=== PATIENT | male | born 1950 | race Caucasian/White ===

== ENCOUNTER 2017-03-16 03:53 | Emergency (ER) | payer MEDICARE, OTHER ==
[~2017-03-16] VITALS: Ht 177.8 cm; Wt 108.6 kg
[2017-03-16 03:55] VITALS: Ht 177.8 cm; Wt 108.6 kg
--- NOTE | 2017-03-16 04:00 | NUR ---
PROVIDER DR. REAL IN ROOM WITH PT.
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
[2017-03-16] MEDS ORDERED: LEVOFLOXACIN 500 MG TABLET PO ONE (04:15)
[2017-03-16] MEDS ORDERED: PHENAZOPYRIDINE 95 MG TABLET PO ONE (04:15)
[2017-03-16] MEDS ORDERED: [UNRECOGNIZED DRUG - OTHER] PO (04:39)
[2017-03-16] MEDS ORDERED: ATOR10TA PO (04:40)
[2017-03-16 04:43] LABS: BLOOD, URINE 3+ (NEGATIVE); COLOR,URINE YELLOW (YELLOW); LEUKOCYTE ESTERASE ,URINE 1+ (NEGATIVE); NITRITE,URINE NEGATIVE (NEGATIVE); UROBILINOGEN,URINE 0.2 EU/DL (NORMAL)
[2017-03-16 04:56] LABS: BACTERIA,URINE TRACE (NEGATIVE); RBC,URINE 20-30 /HPF (0-3)
[2017-03-16] MEDS ORDERED: LEVO500T63 PO (04:59)
[2017-03-16 05:00] VITALS: BP 166/85; PULSE 96; RESP 18; TEMP 99; O2SAT 94
== END 2017-03-16 05:00 | disposition home or self-care (01) ==
LOC: ED 03:53
DX: N30.01 Acute cystitis with hematuria (principal)
CPT/HCPCS: 81001; 87086; 99283; A9270